=== PATIENT | male | born 1945 | race African-American/Black ===

== ENCOUNTER 2024-05-04 12:18 | Emergency (ER) | payer OTHER, MEDICAID ==
[~2024-05-04] VITALS: Ht 170.2 cm; Wt 70.0 kg
[2024-05-04 12:20] VITALS: O2SAT 97
[2024-05-04 16:20] VITALS: BP 155/87; PULSE 75; RESP 18; TEMP 36.6; O2SAT 96
== END 2024-05-04 16:21 | disposition home or self-care (01) ==
LOC: ER 12:44
DX: G89.29 Other chronic pain (principal); M54.50 Low back pain, unspecified; G20.A1 Parkinson's disease without dyskinesia, without mention of fluctuations; G30.9 Alzheimer's disease, unspecified; I10 Essential (primary) hypertension; G82.20 Paraplegia, unspecified; Z99.3 Dependence on wheelchair; W05.0XXA Fall from non-moving wheelchair, initial encounter; Y93.89 Activity, other specified; Y92.89 Other specified places as the place of occurrence of the external cause; Y99.8 Other external cause status
CPT/HCPCS: 72070; 72100; 99284